=== PATIENT | female | born 1950 | race Caucasian/White ===

== ENCOUNTER → 2018-12-10 | Outpatient (CLI) | payer OTHER ==
[2013-09-09 14:10] VITALS: BP 138/83
[~2018-12-10] MED LIST: AMLO-311 PO; AMOX1TAB61 PO; CETI10CA11 PO; FLUT1DIS5 IH; LANS15TA6 PO; NYST1POW24 MC; TIOT18CA IH; ZAFI10TA PO
--- NOTE | 2018-12-10 09:33 | KCIC ---
MR of the left knee HISTORY: Left knee pain since June. Pain is medial. TECHNIQUE: Routine multiplanar sequences are obtained. FINDINGS: Tear at the posterior root attachment and posterior horn of the medial meniscus. Medial subluxation of the meniscus. No evidence of lateral meniscal tear. Anterior and posterior cruciate ligaments are intact. Medial collateral ligament is intact. Iliotibial band unremarkable. Fibular collateral ligament, biceps femoris tendon and popliteus tendon are intact. Extensor mechanism is intact. Small joint effusion. Severe cartilage loss at the medial joint compartment. Small subchondral lesion or band of the subchondral weightbearing medial femoral condyle most likely a small fracture with minimal depression/impaction. Minimal subjacent marrow edema. Mild subchondral marrow edema at the medial tibial plateau is likely degenerative. Severe chondromalacia of the patellofemoral joint. No acute fracture. No aggressive bone destruction. No significant Dickey's cyst. IMPRESSION: 1. Medial meniscal tear at the posterior horn and root. 2. Subchondral lesion at the weightbearing medial femoral condyle most likely a small fracture, in particular a stress fracture if consistent with the patient's clinical history. 3. DJD. Electronically signed by: Atilio Grewal MD (12/10/2018 9:29 AM) [facility]
== END | disposition home or self-care (01) ==
LOC: KCIC MRI 08:23
PROVIDERS: ATTEND Orthopaedic Surgery
DX: S83.242A Other tear of medial meniscus, current injury, left knee, initial encounter (principal); M94.262 Chondromalacia, left knee; M25.462 Effusion, left knee; X58.XXXA Exposure to other specified factors, initial encounter; Y93.9 Activity, unspecified; Y92.89 Other specified places as the place of occurrence of the external cause; Y99.8 Other external cause status
CPT/HCPCS: 73721

== ENCOUNTER → 2019-02-01 | Day surgery (SDC) | payer OTHER ==
[~2019-02-01] VITALS: Ht 166.4 cm; Wt 79.4 kg
[~2019-02-01] MED LIST changes: +DEXAMETHASONE SOD PHOS 4 MG/ML VIAL ONE; +HYDR-3165 PO; +HYDROcodone/APAP 7.5/325MG 1 TAB TABLET PO ONE; +HYDROmorphone 2 MG/ML VIAL IV PRN; +IV RINGERS,LACTATED 1000ML 1,000 ML IV SCH; +LIDOCAINE 1% PF 2 ML VIAL. ID PRN; +LIDOCAINE 2% PF 5 ML VIAL. ONE; +MIDAZOLAM HCL/PF 2 MG/2 ML VIAL. ONE; +MORPHINE SULFATE 2 MG/ML VIAL. IV PRN; +ONDANSETRON PF 4 MG/2 ML VIAL. IV PRN; +ONDANSETRON PF 4 MG/2 ML VIAL. ONE; +PHENYLEPHRINE in 0.9% NACL PF 1 MG/10 ML SYRINGE. IV ONE; +PROCHLORPERAZINE 10 MG/2 ML VIAL. IV PRN; +PROPOFOL 20 ML IV ONE; +SEVOFLURANE 31 TO 60 MINUTES. IH ONE; +ceFAZolin 2GM PREMIX 2 GM/50 ML BAG IV ONE; +fentaNYL PF VIAL 100 MCG/2 ML VIAL IV PRN; +fentaNYL PF VIAL 100 MCG/2 ML VIAL ONE
[2019-02-01] MEDS: BUPIVACAINE-EPI 0.5%-1:200000 MPF 30 ML VIAL. INJ ONE ×2 (05:00→08:48)
[2019-02-01 07:10] LABS: BASO # 0.1 x10^3/uL (0.0-0.2); BASO % 1 % (0-3); EOS # 0.2 x10^3/uL (0.0-0.7); EOS % 3 % (0-3); HEMATOCRIT 38.7 % (36.0-47.0); HEMOGLOBIN 13.3 g/dL (12.0-15.5); LYMPH # 1.5 x10^3/uL (1.0-4.8); LYMPH % 18 % (24-48); MEAN CORPUSCULAR HEMOGLOBIN 30 pg (25-35); MEAN CORPUSCULAR HGB CONC 34 g/dL (31-37); MEAN CORPUSCULAR VOLUME 86 fL (79-100); MONO # 0.7 x10^3/uL (0.0-1.1); MONO % 8 % (0-9); NEUT # 5.7 x10^3/uL (1.8-7.7); NEUT % 70 % (31-73); PLATELET COUNT 250 x10^3/uL (140-400); RED BLOOD COUNT 4.48 x10^6/uL (3.50-5.40); RED CELL DISTRIBUTION WIDTH 13.8 % (11.5-14.5); WHITE BLOOD COUNT 8.1 x10^3/uL (4.0-11.0)
[2019-02-01 07:16] LABS: CALCIUM 9.3 mg/dL (8.5-10.1); CREATININE 1.4 mg/dL (0.6-1.0); GFR 37.5; POTASSIUM 3.9 mmol/L (3.5-5.1)
--- NOTE | 2019-02-01 07:48 | DISCH ---
DISCHARGE INSTRUCTIONS Condition on Discharge Condition on Discharge: Stable Activity After Discharge Activity Instructions for Disc: Activity as tolerated (slow advance of activity as symptoms allow) Weight Bearing Status after Di: As tolerated Diet after Discharge Diet after Discharge: Cardiac, Regular Wound Incision Care Wound/Incision Care: Change dressing (May remove dressing in 2 days may then shower no soaking until sutures removed) Contacting the DRGaldino after DC Call your doctor for: Concerns you may have (report any excessive swelling that doesn't go away mostly with elevation and deep calf pain as discussed) Follow-Up Follow up with: Dr. Riley 1 week Treatment/Equipment after DC Adaptive Equipment Issued: None VIRGIE RILEY MD Feb 01, 2019 07:47
[2019-02-01 09:25] VITALS: BP 127/66
--- NOTE | 2019-02-01 10:31 | EKG ---
[facility] [address] [place] [address] Test Date: 2019-02-01 Test Time: 07:03:59 Pat Name: EMILY CARRASCO Department: Room: Gender: F Residence Life Coordinator: FRANCIS Hubbard : 1950 Requested By: VIRGIE SRINIVASAN Order Number: [id number] Reading MD: Measurements Intervals [place] Rate: 81 P: -90 HI: 124 QRS: 9 QRSD: 78 T: 3 QT: 390 QTc: 453 Interpretive Statements SINUS RHYTHM NORMAL ECG RI6.01 Compared to ECG 08/28/2013 03:27:47 Sinus tachycardia no longer present T-wave abnormality no longer present
--- NOTE | 2019-02-01 18:53 | PDOC4 ---
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 Estimated blood loss: 1 mL Complications: None Operative indications: Please see my orthopedic clinic note for detailed operative indications and note that her sharp pain with twisting correlated with findings of a medial meniscus tear on MRI. I had gone over with her the usual treatment based on structure and function of the meniscus the possibility of nonoperative treatment based on her ongoing symptoms and the operative rationale including the fact that I cannot undo any pain associated with degenerative changes of the knee. She understands this and agrees to proceed with surgical evaluation and treatment along with the possibility of continued pain infection nerve or blood vessel damage blood clots medical or other anesthetic complications among others. Operative text: Patient was identified procedure verified patient placed in the supine position on the operative table. After adequate amounts of general anesthesia were administered the left lower extremity was prepped and draped in standard sterile fashion with a thigh tourniquet applied. After timeout was performed patient procedure identified and verified the left lower extremity was exsanguinated by Esmarch bandage tourniquet inflated to 250 mmHg a lateral portal was established medial portal established using spinal needle localization and the knee joint was systematically examined. No loose bodies were noted in the gutters or suprapatellar pouch she did have grade 3 chondromalacia primarily in the central aspect of the patella which was debrided back to stable tissue with arthroscopic shaver she also had grade 3 chondromalacia of the trochlear groove not requiring debridement she was found to have a tear of the posterior horn body junction area of the medial meniscus which was trimmed back to stable tissue on its anterior rim. She had grade 3 chondromalacia with loose fragments noted on the medial femoral condyle throu ghout the weightbearing surface which were lightly debrided back to stable tissue with the arthroscopic shaver ACL was probed and found be intact as was the lateral meniscus and she had low-grade chondromalacia over the lateral compartment the knee was then toured to ensure no loose cartilaginous bodies were present was drained of arthroscopic fluid portals and fat pad area were in jected with total of 20 mL have percent plain Marcaine portals closed with nylon suture sterile dressings were applied toes were noted be warm pink find deflation of tourniquet patient was returned to recovery room in stable condition having tolerated procedure well VIRGIE SRINIVASAN MD Feb 01, 2019 18:53
== END ==
LOC: SURG 05:51
PROVIDERS: ATTEND Orthopaedic Surgery
DX: S83.242A Other tear of medial meniscus, current injury, left knee, initial encounter (principal); M94.262 Chondromalacia, left knee; I10 Essential (primary) hypertension; E78.00 Pure hypercholesterolemia, unspecified; J44.9 Chronic obstructive pulmonary disease, unspecified; Z87.01 Personal history of pneumonia (recurrent); K21.9 Gastro-esophageal reflux disease without esophagitis; Z87.440 Personal history of urinary (tract) infections; Z98.42 Cataract extraction status, left eye; Z98.41 Cataract extraction status, right eye; Z90.710 Acquired absence of both cervix and uterus; Z72.89 Other problems related to lifestyle; Z96.1 Presence of intraocular lens; X58.XXXA Exposure to other specified factors, initial encounter; Y93.89 Activity, other specified; Y92.89 Other specified places as the place of occurrence of the external cause; Y99.8 Other external cause status
CPT/HCPCS: 29881; 36415; 80048; 85025; 93005; A7015; C1782; J0696; J1100; J2001; J2250; J2370; J2405; J2704; J3010; J3490